=== PATIENT | female | born 1955 | race Caucasian/White ===

== ENCOUNTER 2016-10-07 05:47 | Inpatient (IN) | payer OTHER ==
[2016-10-07] VITALS (15 sets, daily range): BP systolic 82–165; BP diastolic 52–89
[~2016-10-07] VITALS: Ht 170.2 cm; Wt 105.7 kg
[2016-10-07] MEDS ORDERED: Bacitracin 50000 Units Vial ONE (06:27)
[2016-10-07] MEDS ORDERED: PEPCID40 MG PO (06:43)
[2016-10-07] MEDS ORDERED: LISINOPRIL20 MG ORAL (06:43)
[2016-10-07] MEDS ORDERED: HYDROCHLOROTHIA25 MG ORAL (06:43)
[2016-10-07] MEDS ORDERED: NORCO 10-325 T1 EACH ORAL (06:43)
[2016-10-07] MEDS ORDERED: MELOXICAM15 MG PO (06:43)
[2016-10-07] MEDS ORDERED: KTAB PO (06:43)
[2016-10-07] MEDS ORDERED: SERTRALINE HCL50 MG ORAL (06:43)
[2016-10-07] MEDS ORDERED: LR 1000ml ONE (07:00)
[2016-10-07] MEDS ORDERED: NS Irrig 1000ml ONE (07:00)
[2016-10-07] MEDS ORDERED: fentaNYL 100 mcg/2 mL IV ONE (07:00)
[2016-10-07] MEDS ORDERED: Propofol 10mg/ml 100ml btl IV ONE (07:00)
[2016-10-07] MEDS ORDERED: Sterile Water Irrig 1000ml IRRIG ONE (07:00)
--- NOTE | 2016-10-07 07:03 | Pre-Procedure Note/Attestation ---
Pre-Procedure Note/Attestation Complete Prior to Procedure Planned Procedure: right Procedure Narrative: End stage Degenerative Joint Disease. Planed procedure: Right Total Knee Resurface. Indications for Procedure Pre-Operative Diagnosis: End stage Degenerative Joint Disease.Right Knee. Attestation I attest that I discussed the nature of the procedure; its benefits; risks and complications; and alternatives (and the risks and benefits of such alternatives ), prior to the procedure, with the patient (or the patient's legal sales representative womens health). I attest that, if there was a reasonable possibility of needing a blood transfusion, the patient (or the patient's legal sales representative womens health) was given the [facility] standardized written summary, pursuant to the Fernando Peter Blood Safety Act ([place] Health and Safety Code # 1645, as amended). I attest that I re-evaluated the patient just prior to the surgery and that there has been no change in the patient's H&P, except as documented below: NESTOR WILKERSON October 07, 2016 07:03
[2016-10-07] MEDS ORDERED: LR 1000ml 1,000 ML IVLG SCH (08:05)
--- NOTE | 2016-10-07 08:05 | Anethesia Preoperative Eval ---
Anesthesia Pre-op PMH/ROS General Date of Evaluation: October 07, 2016 Time of Evaluation: 07:02 Anesthesiologist: Sylwia ASA Score: ASA 3 Mallampati Score Class I : Soft palate, uvula, fauces, pillars visible Class II: Soft palate, uvula, fauces visible Class III: Soft palate, base of uvula visible Class IV: Only hard plate visible Mallampati Classification: Class III Surgeon: Patricia Diagnosis: R knee DJD Surgical Procedure: R knee TKA Anesthesia History: emergence delirium Social History: current smoker Family History: no anesthesia problems Allergies: Coded Allergies: CORTISONE (Verified Allergy, Intermediate, 10/07/16) HIVES,HOT FLASH LATEX (Verified Allergy, Mild, 10/07/16) MILD SKIN IRRITATION Uncoded Allergies: BANDAID (Allergy, Mild, 10/07/16) SKIN IRRITQTION Medications: see eMAR Past Medical History Cardiovascular: Reports: HTN, Denies: CAD, [place], arrhythmia, other, valve dz Pulmonary: Reports: COPD - mild, KATHLEEN, Denies: asthma, other Gastrointestinal/Genitourinary: Reports: GERD, Denies: CRI, ESRD, other Neurologic/Psychiatric: Reports: depression/anxiety, other - chronic pain, Denies: CVA, TIA, dementia Endocrine: Denies: DM, hypothyroidism, other, steroids HEENT: Denies: [place] (L), [place] (R), cataract (L), cataract (R), glaucoma, other Hematology/Immune: Denies: DVT, anemia, bleeding disorder, other Musculoskeletal/Integumentary: Reports: DJD, Denies: DDD, OA, RA, edema, other Other: obesity PMH Narrative: as above PSxH Narrative: L ankle, dental Sx Anesthesia Pre-op Phys. Exam Physician Exam Last Vital Signs Date Time Temp Pulse Resp B/P Pulse Ox O2 Delivery O2 Flow Rate FiO2 10/07/16 06:44 97.5 79 20 127/87 96 Room Air Constitutional: NAD Neurologic: CN 2-12 intact Cardiovascular: RRR, no M/R/G Respiratory: other - bilateral wheezing, some coghing Gastrointestinal: other - obesity Airway Exam Mallampati Score: Class III MO: limited Neck: short ROM: limited Teeth: missing Dentures: no lower, no upper Anesthesia Pre-op A/P Labs see chart Studies Pre-op Studies: EKG - NSR, CXR - WNL, echo - EF 55-60%, PFTS - Obstrutive pattern Risk Assessment & Plan Assessment: ASA 3 Plan: SAB vs GA. Status Change Before Surgery: No Pre-Antibiotics Drug: Ancef 2gr. Given Within 1 Hr of Incision: Yes Time Given: 07:46 PAULO VINSON M.D. October 07, 2016 08:05
[2016-10-07] MEDS ORDERED: DiphenhydrAMINE 50mg/ml Inj IVP PRN ×2 (08:15→09:30)
[2016-10-07] MEDS ORDERED: Meperidine 25mg/0.5ml Inj IV PRN (08:15)
[2016-10-07] MEDS ORDERED: HYDROmorphone 1mg/ml Carpuject IVP PRN (09:30)
[2016-10-07] MEDS ORDERED: Rate Change PCA 1 Each MISC PRN (09:30)
[2016-10-07] MEDS ORDERED: LORazepam 1mg tab ORAL PRN (09:30)
[2016-10-07] MEDS ORDERED: Naloxone 0.4mg/ml Inj IVP PRN (09:30)
[2016-10-07] MEDS ORDERED: Milk of Magnesia 30ml Ud ORAL PRN (10:00)
--- NOTE | 2016-10-07 10:04 | Operative Note - PDOC ---
Operative Note Operative Note Pre-op Diagnosis: End stage Degenerative Joint Disease.Right Knee. Procedure: Right Total Knee Resurface Post-op Diagnosis: same as pre-op Operative Findings: consistent w/pre-op dx studies Surgeon: Patricia Cath Lab Technologist: JULITO Wilkerson Anesthesiologist: Sylwia Anesthesia: regional - Spinal Specimen: yes Complications: none Condition: stable Estimated Blood Loss: minimal Drains: hemovac Implant(s) used?: Yes - Nkechi Natural Knee NESTOR WILKERSON October 07, 2016 10:04
--- NOTE | 2016-10-07 10:06 | Immediate Post-Op Evaluation ---
Immediate Post-Op Evalulation Immediate Post-Op Evalulation Procedure: R TKA Date of Evaluation: October 07, 2016 Time of Evaluation: 10:05 IV Fluids: 1300 Blood Products: none Estimated Blood Loss: 150 Urinary Output: 350 Blood Pressure Systolic: 116 Blood Pressure Diastolic: 72 Pulse Rate: 78 Respiratory Rate: 22 O2 Sat by Pulse Oximetry: 99 Temperature (Fahrenheit): 98.2 Pain Score (1-10): 2 Nausea: No Vomiting: No Complications none Patient Status: awake, reacts, patent, none Hydration Status: adequate PAULO VINSON M.D. October 07, 2016 10:06
[2016-10-07] MEDS: Hydromorphone 0.5mg/0.5ml inj IVP PRN ×2 (10:26→10:50)
[2016-10-07] MEDS: PCA HYDROmorphone 1mg/ml 30 ML IV PRN (10:58)
--- NOTE | 2016-10-07 11:15 | Diagnostic Imaging Report ---
Indication: Pain 2 views of the right knee were obtained. Findings: Skin emma overlying the anterior aspect of the right knee demonstrated. A total knee arthroplasty is noted with no issues regarding alignment or positioning. No fracture seen. Impression: Status post right total knee replacement
[2016-10-07] MEDS: Docusate 100mg cap ORAL SCH ×3 (13:00→17:08)
[2016-10-07] MEDS: D5 1/2NS w/KCl 20mEq 1,000 ML IV SCH (13:35)
[2016-10-07] MEDS: ceFAZolin sod 1 GM in D5W 55 ML IV SCH (16:11)
[2016-10-07] MEDS: PCA shift volume MISC SCH (19:00)
[2016-10-07] MEDS: Lisinopril 20mg tab ORAL SCH (20:21)
--- NOTE | 2016-10-07 20:30 | Operative Note - Dictated ---
DATE OF OPERATION: 10/07/2016 SURGEON: Kaleb Gomez M.D. DIETETIC TECHNICIAN REGISTERED: Laney Holland ANESTHESIOLOGIST: Gato Dao M.D. ANESTHESIA: Spinal, supplemental, and general. PREOPERATIVE DIAGNOSIS: Posttraumatic arthritis, right knee, tricompartmental with severe varus weightbearing deformity and a 20-degree flexion contracture. POSTOPERATIVE DIAGNOSIS: Posttraumatic arthritis, right knee, tricompartmental with severe varus weightbearing deformity and a 20-degree flexion contracture. OPERATIVE PROCEDURES: Total knee resurfacing arthroplasty using a Nkechi natural knee with an ingrowth size 3 femoral component and a size 3 tibial base plate with fixation using two 35 mm APR screws and a 9 mm congruent polyethylene insert, patellar resurfacing with an all-polyethylene cemented patella size 1, ligament rebalancing by release of the medial and posterior medial capsular ligaments, and lateral retinacular release for patellar realignment. DESCRIPTION OF PROCEDURE: The patient was prepped and draped supine on the operative table after induction of satisfactory anesthesia. The pelvis was squared and the leg was supported using a lateral bolster to facilitate flexion during the procedure and the foot rest also to maintain a flexed position when necessary during surgery. The tourniquet was placed proximally. The leg was prepped and draped freely. Tourniquet was inflated to 300 mm. A 5-inch medial parapatellar incision was made started over the quads tendon and coursed along the medial patella to the infrapatellar ligament as far as the tuberosity. Incision was carried down through skin and subcutaneous tissue exposing the entire extensor apparatus. The medial capsular incision was made along the medial margin of the infrapatellar ligament, medial patella, and proximally curved to split the quads centrally and lateral retinacular release was done so that the extensor apparatus to be turned to 180 degrees exposing the patella. The fat pad and remnants of the medial and lateral meniscus were removed. The medial and posterior medial capsular ligaments were released and the patella was visualized by removing hypertrophic synovium around its margins. The fat pad was removed protecting the infrapatellar ligament. The patella edges were marginated with cautery and a patellar cutting jig was placed to remove a minimal amount of the articular surface and subchondral bone of the patella. The jig was tightened and a reciprocating saw was used to remove the articular surface. About 2/3 of the substance of the patella was left with a flat surface that measured size 1 for the implant. The surface was planed and anchoring holes were made for a size 1 all-polyethylene implant. Trial implant revealed that there was good fit and contact on all surfaces with no remaining prominence to the patella medially or laterally because of tracking problems in the trochlea. The knee was flexed and the femoral medullary canal was cannulated with a guide. An drop mouna was used to check for alignment. The distal femoral cut was then made off the cutting block as well as anterior posterior chamfer and notch cuts for a size 3 femur. The femur fit well with good contact on all surfaces and good alignment. The tibia was brought forward with a retractor. Remnants of the meniscus were removed. The anterior cruciate ligament remnant was also removed. The posterior cruciate ligament was recessed over the posterior edge of the lateral tibia. The tibial alignment jig was then positioned and accommodated for a slow weightbearing axis and rotation and all were readjusted. A jig was placed and a cutting block was positioned over the proximal tibia. It was checked with the weightbearing x-rays that have been taken preoperatively to make sure that it corresponded to the amount of resection preferentially more lateral than medial. The proximal tibial cut was made and then the peripheral anchoring holes and the central anchoring hole was made. A trial tibia and femur were then positioned and range of motion and stability were checked. There was full extension with flexion 95 degrees, good tracking, and good stability. Patellar tracking was also smooth. The tibial component was then tapped into place. Two 35 mm APR screws were used for fixation. A 9 mm congruent polyethylene insert was inserted. The femur was then also reduced and checked for contact and alignment. Range of motion and stability of the femoral and tibial components were good. This was templated with the trials. The size 1 all-poly patella was then cemented into place. All excess cement was removed. Tourniquet was released. Bleeders were coagulated. The medial capsule was closed with interrupted [id number] sutures with #1 Vicryl. The subcutaneous and skin was likewise closed separately. A medium Hemovac was left in the lateral retinacular release effect and the knee was placed in a bulky compression dressing. Blood loss was less than 100 mL. Alignment and stability were good at final check. Good pulse and good vascularity of the foot. The patient returned to the recovery room in good condition. Kaleb Gomez M.D. DR: TABATHA JOB#: [id number] CC: [email or web address]
[2016-10-08] MEDS: ceFAZolin sod 1 GM in D5W 55 ML IV SCH ×3 (01:18→15:36)
[2016-10-08] MEDS: D5 1/2NS w/KCl 20mEq 1,000 ML IV SCH ×4 (03:11→23:46)
[2016-10-08 04:00] VITALS: BP 147/80
[2016-10-08] MEDS: PCA shift volume MISC SCH ×2 (07:00→19:18)
[2016-10-08 08:00] VITALS: BP 148/86
[2016-10-08] MEDS: Lisinopril 20mg tab ORAL SCH ×2 (08:36→17:37)
[2016-10-08] MEDS: Sertraline 50mg tab ORAL SCH (08:36)
--- NOTE | 2016-10-08 08:38 | General Surgery Progress Note ---
General Surgery-Progress Note Subjective Procedure Performed Right Total Knee Resurface Objective Last 24 Hour Vital Signs Date Time Temp Pulse Resp B/P Pulse Ox O2 Delivery O2 Flow Rate FiO2 10/08/16 04:00 18 10/08/16 04:00 98.2 90 20 147/80 97 Nasal Cannula 2.0 10/08/16 00:00 16 10/07/16 20:21 156/96 10/07/16 20:00 17 10/07/16 20:00 98.4 83 20 165/89 93 Nasal Cannula 2.0 10/07/16 16:00 18 10/07/16 15:30 97.1 76 20 138/64 100 Nasal Cannula 2.0 10/07/16 13:30 97.1 70 18 137/83 100 Nasal Cannula 2.0 10/07/16 12:43 18 10/07/16 12:30 97.0 68 20 136/88 100 Room Air 10/07/16 12:15 13 10/07/16 11:45 98.9 64 16 128/80 96 Nasal Cannula 2.0 10/07/16 11:45 13 10/07/16 11:30 65 17 129/82 96 Nasal Cannula 2.0 10/07/16 11:30 15 10/07/16 11:20 98.9 10/07/16 11:15 16 10/07/16 11:15 98.9 63 18 125/76 96 Nasal Cannula 2.0 10/07/16 11:00 62 17 110/65 95 Nasal Cannula 2.0 10/07/16 10:58 16 10/07/16 10:56 98.9 10/07/16 10:45 63 17 95/53 96 Nasal Cannula 2.0 10/07/16 10:30 62 18 91/53 96 Nasal Cannula 2.0 10/07/16 10:15 61 17 89/52 96 Nasal Cannula 2.0 10/07/16 10:06 78 22 99 10/07/16 10:05 60 16 86/52 98 Simple Mask 6.0 10/07/16 10:00 66 17 82/53 98 Simple Mask 6.0 10/07/16 09:55 99.0 65 18 99/65 98 Simple Mask 6.0 I&O Intake and Output 10/07/16 10/08/16 19:00 07:00 Intake Total 2275 ml 900 ml Output Total 1025 ml 990 ml Balance 1250 ml -90 ml Intake Oral 600 ml IV Total 1675 ml 900 ml Output Urine Total 800 ml 850 ml Drainage Total 75 ml 140 ml Estimated Blood Loss 150 ml Dressing: dry Wound: clean Drains: hemovac Additional Comments Right knee with mild post op swelling. Good pulse.Drain clamped overnight. Will begin PT/OT today, open drain to suction and advence activities as tolerated. X-Ray of knee shows good alignment of implants. Dr. Carey following. ENSTOR WILKERSON October 08, 2016 08:38
[2016-10-08] MEDS: Docusate 100mg cap ORAL SCH ×3 (09:00→18:00)
--- NOTE | 2016-10-08 09:25 | History & Physical ---
History and Physical History & Physicial HP reviewed care noted d/w RN meds reordered 5-15- FRIDA BAUER October 08, 2016 09:25
--- NOTE | 2016-10-08 09:26 | General Progress Note ---
Assessment/Plan Assessment/Plan right total knee resurface osteoarthritis hypertension lung disease PLAN 1. incentive spirometry 2. Lovenox 3. PT evaluation and therapy 4. Hydration 5. Pain management 6. discharge once stable with outpatient follow up Subjective Allergies: Coded Allergies: CORTISONE (Verified Allergy, Intermediate, 10/07/16) HIVES,HOT FLASH LATEX (Verified Allergy, Mild, 10/07/16) MILD SKIN IRRITATION Uncoded Allergies: BANDAID (Allergy, Mild, 10/07/16) SKIN IRRITQTION Subjective pain post op care noted Objective Last 24 Hour Vital Signs Date Time Temp Pulse Resp B/P Pulse Ox O2 Delivery O2 Flow Rate FiO2 10/08/16 08:56 98.2 10/08/16 08:36 147/80 10/08/16 08:00 98.4 90 20 148/86 93 Nasal Cannula 3.0 10/08/16 04:00 18 10/08/16 04:00 98.2 90 20 147/80 97 Nasal Cannula 2.0 10/08/16 00:00 16 10/07/16 20:21 156/96 10/07/16 20:00 17 10/07/16 20:00 98.4 83 20 165/89 93 Nasal Cannula 2.0 10/07/16 16:00 18 10/07/16 15:30 97.1 76 20 138/64 100 Nasal Cannula 2.0 10/07/16 13:30 97.1 70 18 137/83 100 Nasal Cannula 2.0 10/07/16 12:43 18 10/07/16 12:30 97.0 68 20 136/88 100 Room Air 10/07/16 12:15 13 10/07/16 11:45 98.9 64 16 128/80 96 Nasal Cannula 2.0 10/07/16 11:45 13 10/07/16 11:30 65 17 129/82 96 Nasal Cannula 2.0 10/07/16 11:30 15 10/07/16 11:20 98.9 10/07/16 11:15 16 10/07/16 11:15 98.9 63 18 125/76 96 Nasal Cannula 2.0 10/07/16 11:00 62 17 110/65 95 Nasal Cannula 2.0 10/07/16 10:58 16 10/07/16 10:56 98.9 5/15/17 10:45 63 17 95/53 96 Nasal Cannula 2.0 10/07/16 10:30 62 18 91/53 96 Nasal Cannula 2.0 10/07/16 10:15 61 17 89/52 96 Nasal Cannula 2.0 10/07/16 10:06 78 22 99 10/07/16 10:05 60 16 86/52 98 Simple Mask 6.0 10/07/16 10:00 66 17 82/53 98 Simple Mask 6.0 10/07/16 09:55 99.0 65 18 99/65 98 Simple Mask 6.0 Intake and Output 10/07/16 10/08/16 19:00 07:00 Intake Total 2275 ml 900 ml Output Total 1025 ml 990 ml Balance 1250 ml -90 ml Intake Oral 600 ml IV Total 1675 ml 900 ml Output Urine Total 800 ml 850 ml Drainage Total 75 ml 140 ml Estimated Blood Loss 150 ml Height (Feet): 5 Height (Inches): 7.00 Weight (Pounds): 233 Objective WDWN NAD clear breath sounds bilaterally without rhonchi or wheeze [id number] without MRG NABS nontender no HSM no CCE nonfocal right knee dressing in place FRIDA BAUER October 08, 2016 09:26
--- NOTE | 2016-10-08 09:27 | 48 Hour Post Anesthesia Eval ---
Post Anesthesia Evaluation Procedure: R TKA Date of Evaluation: October 08, 2016 Time of Evaluation: 09:40 Blood Pressure Systolic: 148 0: 86 Pulse Rate: 90 Respiratory Rate: 20 Temperature (Fahrenheit): 98.4 O2 Sat by Pulse Oximetry: 93 Airway: patent Nausea: No Vomiting: No Pain Intensity: 6 If pain is > 6 Comment: Patient not using SECURITY AND COMPLIANCE PROJECT MANAGER effectively. Explained how to use SECURITY AND COMPLIANCE PROJECT MANAGER Hydration Status: adequate Cardiopulmonary Status: Stable Mental Status/LOC: patient returned to baseline Follow-up Care/Observations: As per surgery Post-Anesthesia Complications: No anesthetic complication Follow-up care needed: N/A AMISH DAMON M.D. October 08, 2016 09:27
[2016-10-08] MEDS ORDERED: ceFAZolin sod 1 GM in D5W 55 ML IV SCH (10:26)
[2016-10-08] MEDS: PCA HYDROmorphone 1mg/ml 30 ML IV PRN (10:52)
[2016-10-08 12:00] VITALS: BP 133/78
[2016-10-08 16:00] VITALS: BP 159/95
[2016-10-08 20:00] VITALS: BP 133/82
[2016-10-09] VITALS: BP 145/90
[2016-10-09] MEDS: ceFAZolin sod 1 GM in D5W 55 ML IV SCH ×3 (00:21→17:25)
[2016-10-09] MEDS: PCA shift volume MISC SCH ×2 (07:21→19:00)
[2016-10-09 08:00] VITALS: BP 120/74
[2016-10-09] MEDS: D5 1/2NS w/KCl 20mEq 1,000 ML IV SCH (08:19)
[2016-10-09] MEDS: Docusate 100mg cap ORAL SCH ×3 (08:23→17:27)
[2016-10-09] MEDS: Lisinopril 20mg tab ORAL SCH ×2 (08:23→17:27)
[2016-10-09] MEDS: Sertraline 50mg tab ORAL SCH (08:23)
[2016-10-09] MEDS ORDERED: HYDROmorphone 1mg/ml Carpuject SUBQ PRN (09:30)
[2016-10-09] MEDS ORDERED: Norco 5mg/325mg tab ORAL PRN (09:30)
[2016-10-09] MEDS ORDERED: Norco 7.5mg/325mg tab ORAL PRN (09:30)
[2016-10-09] MEDS ORDERED: Naloxone 0.4mg/ml Inj IVP PRN (10:00)
[2016-10-09] MEDS ORDERED: LORazepam 1mg tab ORAL PRN (10:00)
[2016-10-09] MEDS ORDERED: DiphenhydrAMINE 50mg/ml Inj IVP PRN (10:00)
[2016-10-09] MEDS ORDERED: Rate Change PCA 1 Each MISC PRN (10:00)
[2016-10-09] MEDS ORDERED: HYDROmorphone 1mg/ml Carpuject IVP PRN (10:00)
[2016-10-09 12:00] VITALS: BP 127/74
[2016-10-09] MEDS: Enoxaparin 40mg Inj SUBQ SCH (12:09)
[2016-10-09] MEDS: PCA HYDROmorphone 1mg/ml 30 ML IV PRN (14:21)
--- NOTE | 2016-10-09 14:52 | General Progress Note ---
Assessment/Plan Assessment/Plan right total knee resurface osteoarthritis hypertension lung disease PLAN 1. incentive spirometry 2. Lovenox started 3. PT evaluation and therapy 4. Hydration 5. Pain management 6. discharge once stable with outpatient follow up Subjective Allergies: Coded Allergies: CORTISONE (Verified Allergy, Intermediate, 10/07/16) HIVES,HOT FLASH LATEX (Verified Allergy, Mild, 10/07/16) MILD SKIN IRRITATION Uncoded Allergies: BANDAID (Allergy, Mild, 10/07/16) SKIN IRRITQTION Subjective pain post op care noted care d/w ortho Objective Last 24 Hour Vital Signs Date Time Temp Pulse Resp B/P Pulse Ox O2 Delivery O2 Flow Rate FiO2 10/09/16 14:15 20 10/09/16 12:14 Room Air 21 10/09/16 12:14 97 Room Air 21 10/09/16 12:00 99.0 94 20 127/74 98 Room Air 10/09/16 12:00 16 10/09/16 08:23 120/84 10/09/16 08:00 98.1 98 20 120/74 97 Nasal Cannula 2.0 10/09/16 08:00 18 10/09/16 04:00 17 10/09/16 00:00 97.7 104 18 145/90 90 Nasal Cannula 2.0 10/09/16 00:00 18 10/08/16 20:00 16 10/08/16 20:00 97.3 105 19 133/82 94 Nasal Cannula 2.0 10/08/16 17:37 159/95 10/08/16 17:14 95 Nasal Cannula 2.0 28 10/08/16 17:14 Nasal Cannula 2.0 28 10/08/16 16:00 96.4 109 20 159/95 94 Nasal Cannula 2.0 10/08/16 16:00 18 Intake and Output 10/08/16 10/09/16 19:00 07:00 Intake Total 1400 ml 975 ml Output Total 1540 ml 2080 ml Balance -140 ml -1105 ml Intake Oral 500 ml IV Total 900 ml 975 ml Output Urine Total 1350 ml 2000 ml Drainage Total 190 ml 80 ml Height (Feet): 5 Height (Inches): 7.00 Weight (Pounds): 233 Objective WDWN NAD clear breath sounds bilaterally without rhonchi or wheeze [id number] without MRG NABS nontender no HSM no CCE nonfocal right knee dressing in place FRIDA BAUER October 09, 2016 14:52
[2016-10-09 16:00] VITALS: BP 128/69
[2016-10-09 20:00] VITALS: BP 144/79
[2016-10-10] VITALS: BP 131/78
[2016-10-10] MEDS: ceFAZolin sod 1 GM in D5W 55 ML IV SCH ×3 (00:11→16:10)
[2016-10-10] MEDS: D5 1/2NS w/KCl 20mEq 1,000 ML IV SCH ×2 (02:26→07:57)
[2016-10-10 04:00] VITALS: BP 118/70
[2016-10-10 05:38] LABS: BASOPHILS % (AUTO) 0.6 % (0.0-2.0); EOSINOPHILS % (AUTO) 0.5 % (0.0-3.0); LYMPHOCYTES % (AUTO) 15.2 % (20.0-45.0); MEAN CORPUSCULAR HEMOGLOBIN 31.5 PG (27.0-31.0); MEAN CORPUSCULAR HGB CONC 33.3 G/DL (32.0-36.0); MEAN CORPUSCULAR VOLUME 95 FL (80-99); MEAN PLATELET VOLUME 5.4 FL (6.5-10.1); MONOCYTES % (AUTO) 11.2 % (1.0-10.0); NEUTROPHILS % (AUTO) 72.5 % (45.0-75.0); PLATELET COUNT 268 K/UL (150-450); RED BLOOD COUNT 3.37 M/UL (4.20-5.40); RED CELL DISTRIBUTION WIDTH 12.4 % (11.6-14.8); WHITE BLOOD COUNT 11.8 K/UL (4.8-10.8)
[2016-10-10 05:52] LABS: ANION GAP 10 (5-15); CALCIUM 8.4 mg/dL (8.6-10.2); CARBON DIOXIDE 31 mEQ/L (20-30); CHLORIDE 90 mEQ/L (98-107); CREATININE 0.5 mg/dL (0.5-0.9); GLOMERULAR FILTRATION RATE > 60 mL/min (>60); HEMOLYSIS 0; POTASSIUM 3.8 mEQ/L (3.4-4.9); SODIUM 131 mEQ/L (135-145)
[2016-10-10] MEDS: PCA shift volume MISC SCH ×2 (07:20→19:19)
[2016-10-10 08:00] VITALS: BP 129/75
--- NOTE | 2016-10-10 08:10 | General Progress Note ---
Assessment/Plan Assessment/Plan right total knee resurface osteoarthritis hypertension lung disease PLAN 1. incentive spirometry 2. Lovenox daily 3. PT evaluation and therapy 4. Hydration-dc 5. Pain management- dc GUNNER'S MATE G in am 6. discharge once stable with outpatient follow up Subjective Allergies: Coded Allergies: CORTISONE (Verified Allergy, Intermediate, 10/07/16) HIVES,HOT FLASH LATEX (Verified Allergy, Mild, 10/07/16) MILD SKIN IRRITATION Uncoded Allergies: BANDAID (Allergy, Mild, 10/07/16) SKIN IRRITQTION Subjective pain better post op care noted care d/w ortho Objective Last 24 Hour Vital Signs Date Time Temp Pulse Resp B/P Pulse Ox O2 Delivery O2 Flow Rate FiO2 10/10/16 08:00 98.1 87 18 129/75 95 Room Air 10/10/16 04:00 96.9 90 18 118/70 94 Room Air 10/10/16 04:00 20 10/10/16 00:00 20 10/10/16 00:00 98.9 95 20 131/78 95 Room Air 10/09/16 20:00 98.8 79 16 144/79 94 Nasal Cannula 2.0 10/09/16 20:00 20 10/09/16 19:04 96 Nasal Cannula 2.0 10/09/16 19:04 Nasal Cannula 2.0 10/09/16 17:27 129/72 10/09/16 16:00 20 10/09/16 16:00 98.0 79 20 128/69 97 Room Air 10/09/16 14:51 99.0 10/09/16 14:15 20 10/09/16 12:14 Room Air 21 10/09/16 12:14 97 Room Air 21 10/09/16 12:00 99.0 94 20 127/74 98 Room Air 10/09/16 12:00 16 10/09/16 08:23 120/84 Intake and Output 10/09/16 10/10/16 19:00 07:00 Intake Total 1545 ml 825 ml Output Total 70 ml Balance 1545 ml 755 ml Intake Oral 480 ml 600 ml IV Total 1065 ml 225 ml Drainage Total 70 ml # Voids 4 6 Laboratory Tests 10/10/16 04:30: White Blood Count 11.8H, Red Blood Count 3.37L, Hemoglobin 10.6L, Hematocrit 31.9L, Mean Corpuscular Volume 95, Mean Corpuscular Hemoglobin 31.5H, Mean Corpuscular Hemoglobin Concent 33.3, Red Cell Distribution Width 12.4, Platelet Count 268, Mean Platelet Volume 5.4L, Neutrophils (%) (Auto) 72.5, Lymphocytes ( %) (Auto) 15.2L, Monocytes (%) (Auto) 11.2H, Eosinophils (%) (Auto) 0.5, Basophils (%) (Auto) 0.6, Sodium Level 131L, Potassium Level 3.8, Chloride Level 90L, Carbon Dioxide Level 31H, Anion Gap 10, Blood Urea Nitrogen 7, Creatinine 0.5, Estimat Glomerular Filtration Rate > 60, Glucose Level 181H, Calcium Level 8.4L Height (Feet): 5 Height (Inches): 7.00 Weight (Pounds): 233 Objective WDWN NAD clear breath sounds bilaterally without rhonchi or wheeze [id number] without MRG NABS nontender no HSM no CCE nonfocal right knee dressing in place FRIDA BAUER October 10, 2016 08:10
[2016-10-10] MEDS: Docusate 100mg cap ORAL SCH ×3 (08:46→17:55)
[2016-10-10] MEDS: Sertraline 50mg tab ORAL SCH (08:46)
[2016-10-10] MEDS: Lisinopril 20mg tab ORAL SCH ×2 (08:46→17:56)
[2016-10-10] MEDS: Enoxaparin 40mg Inj SUBQ SCH (08:52)
[2016-10-10 12:00] VITALS: BP 125/78
[2016-10-10 16:00] VITALS: BP 139/87
[2016-10-10] MEDS: PCA HYDROmorphone 1mg/ml 30 ML IV PRN (16:01)
[2016-10-10 20:00] VITALS: BP 132/75
[2016-10-11] MEDS: ceFAZolin sod 1 GM in D5W 55 ML IV SCH ×4 (00:30→22:15)
[2016-10-11 04:00] VITALS: BP 117/69
[2016-10-11] MEDS: PCA shift volume MISC SCH ×2 (07:00→19:00)
[2016-10-11 08:00] VITALS: BP 130/73
--- NOTE | 2016-10-11 08:57 | General Progress Note ---
Assessment/Plan Assessment/Plan right total knee resurface osteoarthritis hypertension lung disease PLAN 1. incentive spirometry 2. Lovenox daily 3. PT evaluation and therapy 4. Hydration-dc 5. Pain management- dc INDUSTRIAL GAS SERVICE HELPER 6. discharge planning Subjective Allergies: Coded Allergies: CORTISONE (Verified Allergy, Intermediate, 10/07/16) HIVES,HOT FLASH LATEX (Verified Allergy, Mild, 10/07/16) MILD SKIN IRRITATION Uncoded Allergies: BANDAID (Allergy, Mild, 10/07/16) SKIN IRRITQTION Subjective pain better post op care noted care d/w ortho Objective Last 24 Hour Vital Signs Date Time Temp Pulse Resp B/P Pulse Ox O2 Delivery O2 Flow Rate FiO2 10/11/16 08:00 98.2 86 18 130/73 96 Room Air 10/11/16 04:00 98.4 84 18 117/69 92 Room Air 10/11/16 03:56 20 10/11/16 00:00 20 10/10/16 20:00 99.0 90 18 132/75 95 Room Air 10/10/16 20:00 20 10/10/16 19:25 94 Room Air 10/10/16 19:25 Room Air 10/10/16 17:56 139/87 10/10/16 16:31 98.2 10/10/16 16:02 20 10/10/16 16:01 20 10/10/16 16:00 98.1 88 18 139/87 94 Room Air 10/10/16 12:02 20 10/10/16 12:00 98.2 98 18 125/78 94 Room Air 10/10/16 09:17 98.1 Intake and Output 10/10/16 10/11/16 19:00 07:00 Intake Total 970 ml 855 ml Output Total 51 ml 535 ml Balance 919 ml 320 ml Intake Oral 860 ml 800 ml IV Total 110 ml 55 ml Output Urine Total 1 ml 500 ml Drainage Total 50 ml 35 ml # Voids 1 Height (Feet): 5 Height (Inches): 7.00 Weight (Pounds): 233 Objective WDWN NAD clear breath sounds bilaterally without rhonchi or wheeze [id number] without MRG NABS nontender no HSM no CCE nonfocal right knee dressing in place FRIDA BAUER October 11, 2016 08:56
[2016-10-11] MEDS: Lisinopril 20mg tab ORAL SCH ×2 (09:16→17:26)
[2016-10-11] MEDS: Docusate 100mg cap ORAL SCH ×4 (09:17→18:00)
[2016-10-11] MEDS: Sertraline 50mg tab ORAL SCH (09:17)
[2016-10-11] MEDS: Enoxaparin 40mg Inj SUBQ SCH (09:18)
[2016-10-11] MEDS ORDERED: Norco 7.5mg/325mg tab ORAL PRN (09:30)
[2016-10-11] MEDS ORDERED: Norco 5mg/325mg tab ORAL PRN (09:30)
[2016-10-11] MEDS ORDERED: HYDROmorphone 1mg/ml Carpuject SUBQ PRN (09:30)
[2016-10-11] MEDS ORDERED: Tubing IV Secondary IV ONE (09:46)
[2016-10-11 12:00] VITALS: BP 138/64
[2016-10-11] MEDS ORDERED: Rate Change PCA 1 Each MISC PRN (12:15)
[2016-10-11] MEDS ORDERED: NS 275ml ONE (15:22)
[2016-10-11] MEDS: PCA HYDROmorphone 1mg/ml 30 ML IV PRN (15:58)
[2016-10-11 16:00] VITALS: BP 133/79
[2016-10-11 20:00] VITALS: BP 133/78
[2016-10-12] VITALS: BP 142/78
[2016-10-12 04:00] VITALS: BP 135/84
[2016-10-12] MEDS: ceFAZolin sod 1 GM in D5W 55 ML IV SCH ×2 (05:57→15:31)
--- NOTE | 2016-10-12 06:58 | General Progress Note ---
Assessment/Plan Assessment/Plan right total knee resurface osteoarthritis hypertension lung disease PLAN 1. Xarelto on discharge 2.Pain management 3. PT evaluation and therapy 4. improved 5. Pain management- dc CLINICAL ASSISTANT PROFESSOR 6. discharge planning Subjective Allergies: Coded Allergies: CORTISONE (Verified Allergy, Intermediate, 10/07/16) HIVES,HOT FLASH LATEX (Verified Allergy, Mild, 10/07/16) MILD SKIN IRRITATION Uncoded Allergies: BANDAID (Allergy, Mild, 10/07/16) SKIN IRRITQTION Subjective pain better improved Objective Last 24 Hour Vital Signs Date Time Temp Pulse Resp B/P Pulse Ox O2 Delivery O2 Flow Rate FiO2 10/12/16 04:00 18 10/12/16 04:00 98.2 83 18 135/84 94 Room Air 10/12/16 00:00 97.9 94 18 142/78 92 Room Air 10/12/16 00:00 18 10/11/16 20:00 99.7 90 18 133/78 91 Room Air 10/11/16 20:00 18 10/11/16 17:26 138/64 10/11/16 16:32 97.0 10/11/16 16:00 97.2 90 20 133/79 96 Room Air 10/11/16 16:00 18 10/11/16 12:00 97.0 69 20 138/64 98 Room Air 10/11/16 12:00 18 10/11/16 09:16 130/73 10/11/16 08:00 18 10/11/16 08:00 98.2 86 18 130/73 96 Room Air Intake and Output 10/11/16 10/12/16 19:00 07:00 Intake Total 480 ml 55 ml Output Total 4 ml Balance 476 ml 55 ml Intake Oral 480 ml IV Total 55 ml Drainage Total 4 ml # Voids 3 # Bowel Movements 2 Height (Feet): 5 Height (Inches): 7.00 Weight (Pounds): 233 Objective WDWN NAD clear breath sounds bilaterally without rhonchi or wheeze [id number] without MRG NABS nontender no HSM no CCE nonfocal right knee dressing in place FRIDA BAUER October 12, 2016 06:58
[2016-10-12] MEDS: PCA shift volume MISC SCH ×2 (07:00→19:27)
[2016-10-12 08:00] VITALS: BP 158/97
[2016-10-12] MEDS: Sertraline 50mg tab ORAL SCH (09:49)
[2016-10-12] MEDS: Docusate 100mg cap ORAL SCH ×3 (09:49→17:33)
[2016-10-12] MEDS: Lisinopril 20mg tab ORAL SCH ×2 (09:50→17:40)
[2016-10-12] MEDS: Enoxaparin 40mg Inj SUBQ SCH (09:57)
[2016-10-12 12:00] VITALS: BP 150/74
[2016-10-12 16:00] VITALS: BP 151/89
[2016-10-12] MEDS: PCA HYDROmorphone 1mg/ml 30 ML IV PRN (17:30)
[2016-10-12 20:00] VITALS: BP 141/84
[2016-10-13] VITALS: BP 141/83
[2016-10-13 04:00] VITALS: BP 140/87
[2016-10-13 08:00] VITALS: BP 146/87
[2016-10-13] MEDS: Docusate 100mg cap ORAL SCH (08:23)
[2016-10-13] MEDS: Lisinopril 20mg tab ORAL SCH (08:24)
[2016-10-13] MEDS: Sertraline 50mg tab ORAL SCH (08:24)
[2016-10-13] MEDS: Enoxaparin 40mg Inj SUBQ SCH (08:28)
--- NOTE | 2016-10-13 08:33 | General Progress Note ---
Assessment/Plan Assessment/Plan right total knee resurface osteoarthritis hypertension lung disease PLAN 1. Xarelto on discharge 2.Pain management; rx written 3. PT evaluation and therapy 4. improved 5. monitor knee swelling; ice and elevate 6. discharge planning today Subjective Allergies: Coded Allergies: CORTISONE (Verified Allergy, Intermediate, 10/07/16) HIVES,HOT FLASH LATEX (Verified Allergy, Mild, 10/07/16) MILD SKIN IRRITATION Uncoded Allergies: BANDAID (Allergy, Mild, 10/07/16) SKIN IRRITQTION Subjective pain better improved drain is out Objective Last 24 Hour Vital Signs Date Time Temp Pulse Resp B/P Pulse Ox O2 Delivery O2 Flow Rate FiO2 10/13/16 08:24 140/87 10/13/16 04:00 18 10/13/16 04:00 97.9 110 18 140/87 95 Room Air 10/13/16 00:00 98.8 89 18 141/83 94 Room Air 10/13/16 00:00 18 10/12/16 20:00 97.9 94 18 141/84 97 Room Air 10/12/16 20:00 18 10/12/16 17:40 151/89 10/12/16 16:00 18 10/12/16 16:00 97.3 85 20 151/89 94 Room Air 10/12/16 12:00 97.3 92 20 150/74 93 Room Air 10/12/16 12:00 18 10/12/16 09:50 158/97 10/12/16 09:00 Room Air 10/12/16 09:00 94 Room Air 21 Intake and Output 10/12/16 10/13/16 19:00 07:00 Intake Total 600 ml 3000 ml Balance 600 ml 3000 ml Intake Oral 600 ml 3000 ml # Voids 3 5 # Bowel Movements 1 Height (Feet): 5 Height (Inches): 7.00 Weight (Pounds): 233 Objective WDWN NAD clear breath sounds bilaterally without rhonchi or wheeze [id number] without MRG NABS nontender no HSM no CCE nonfocal right knee with some edema and mild redness FRIDA BAUER October 13, 2016 08:33
[2016-10-13] MEDS ORDERED: XARELTO10 MG ORAL ×2 (10:19→10:22)
[2016-10-13 12:00] VITALS: BP 144/90
[2016-10-13] MEDS ORDERED: HYDROmorphone 1mg/ml Carpuject SUBQ PRN (12:45)
[2016-10-13] MEDS ORDERED: Norco 7.5mg/325mg tab ORAL PRN (12:45)
[2016-10-13] MEDS ORDERED: Norco 5mg/325mg tab ORAL PRN (12:45)
--- NOTE | 2016-10-14 12:52 | Discharge Summary ---
Discharge Summary Hospital Course Date of Admission October 07, 2016 at 05:47 Date of Discharge October 13, 2016 at 13:30 Admitting Diagnosis R knee severe osteoarthritis Reason for Hospitalization: elective surgery HPI Kenyatta Hooper is a 61 year old female who was admitted on October 07, 2016 at 05 :47 for Rt Knee Pain Consultations dr Carey - Procedures s/p 10/07 R total [facility]co[facility]/ Xarelto on discharge Pain management; script written for patient PT evaluation and therapy, ambulates ice prn and elevate RLE prn incision clean neurovascular intact tolerates diet voided freely had BM BP management with RENNY, stable O2, HHN prn, pulse oximetry stable on RA DISCHARGE DIAGNOSES Posttraumatic arthritis, right knee, tricompartmental arthritis with severe varus weightbearing deformity and a 20- degree flexion contracture. s/p total right knee resurface arthroplasty postoperative pain hypertension lung disease Discharge Medications Continued Medications: Famotidine (Pepcid) 40 Mg Tablet 40 MG PO DAILY, #7 TAB 0 Refills Hydrochlorothiazide* (Hydrochlorothiazide*) 25 Mg Tablet 25 MG ORAL DAILY, TAB Hydrocodone Bit/Acetaminophen 10-325* ([place] 10-325*) 1 Each Tablet 1 TAB ORAL NEEDED PRN for For Pain, TAB 0 Refills PRN PAIN Lisinopril (Lisinopril*) 20 Mg Tablet 20 MG ORAL BID, TAB Meloxicam* (Meloxicam*) 15 Mg Tablet 15 MG PO NEEDED, TAB Rivaroxaban (Xarelto*) 10 Mg Tablet 10 MG ORAL DAILY for 10 Days, #30 TAB 0 Refills Sertraline Hcl* (Zoloft*) 50 Mg Tablet 50 MG ORAL DAILY, TAB Discharge Condition Upon Discharge: stable Discharge Disposition Patient was discharged to Home () Discharge Diagnoses: Discharge Instructions Discharge Instructions Special Instructions I have been assigned to complete a D/C Summary on this account. I was not involved in the patient management Mary Jane Parkinson NP ([place]) October 14, 2016 12:52
== END 2016-10-13 13:30 | disposition home or self-care (01) | DRG 470 ==
LOC: SDSOVERFLO 05:47 → 3E 12:25
PROC: 0SRC0J9 Replacement of Right Knee Joint with Synthetic Substitute, Cemented, Open Approach (ICD-10-PCS; principal; 2016-10-07 07:00)
DX: M17.11 Unilateral primary osteoarthritis, right knee (principal); J98.4 Other disorders of lung; I10 Essential (primary) hypertension; F17.200 Nicotine dependence, unspecified, uncomplicated; Z88.8 Allergy status to other drugs, medicaments and biological substances; G89.18 Other acute postprocedural pain
CPT/HCPCS: 36415; 80048; 82962; 85025; 86850; 86900; 86901; 87081; 93970; 94003; 94150; 94760; J2405